=== PATIENT | female | born 1960 | race African-American/Black ===

== ENCOUNTER 2019-03-12 12:37 | Emergency (ER) | payer BC, OTHER ==
[2019-03-12 12:41] VITALS: BP 120/62; PULSE 73; TEMP 97.8; BMI 35.2
[2019-03-12] MEDS ORDERED: ACETAMINOPHEN 325 MG TABLET (FP) PO ONE (13:01)
--- NOTE | 2019-03-12 13:05 | PDOC ---
History of Present Illness - General Chief Complaint: Injury Stated Complaint: FALL Time Seen by Provider: 03/12/19 13:00 History Source: Patient Exam Limitations: No Limitations - History of Present Illness Initial Comments: 03/12/19 13:01 Patient stumbled over a box at a store falling sideways striking the lateral aspect of her head on a metal display rack. Occurred: reports: just prior to arrival Pain Location: reports: face, head Method of Injury: Yes: direct blow Modifying Factors: improves with: cold therapy Loss of Consciousness: no loss of consciousness Associated Symptoms (Fall): denies symptoms Past History - Travel Traveled outside of the country in the last 30 days: No Close contact w/someone who was outside of country & ill: No - Past Medical History Allergies/Adverse Reactions: Allergies Allergy/AdvReac Type Severity Reaction Status Date / Time lisinopril Allergy Verified 03/12/19 12:41 COPD: No Diabetes: Yes HTN: Yes Hypercholesterolemia: Yes - Psycho Social/Smoking Cessation Hx Smoking History: Never smoked Review of Systems - Review of Systems Able to Perform ROS?: Yes Is the patient limited Faroese proficient: Yes Constitutional: Yes: Symptoms Reported, See HPI, Malaise. No: Fever HEENTM: Yes: Symptoms Reported, See HPI, Other (Contusion to right lateral outer brow) Respiratory: No: Symptoms reported Integumentary: Yes: Symptoms Reported, See HPI, Bruising Neurological: Yes: See HPI. No: Symptoms reported, Headache All Other Systems: Reviewed and Negative *Physical Exam - Vital Signs Last Vital Signs Temp Pulse Resp BP Pulse Ox 97.8 F 73 18 120/62 99 03/12/19 12:39 03/12/19 12:39 03/12/19 12:39 03/12/19 12:39 03/12/19 12:39 - Physical Exam General Appearance: Yes: Nourished, Appropriately Dressed, Apparent Distress, Mild Distress HEENT: positive: EOMI, TARUN, Normal ENT Inspection, TMs Normal (No hemotympanum , no drainage from nose or ears, no evidence of skull fracture). negative: Rhinorrhea Neck: positive: Supple. negative: Tender Respiratory/Chest: positive: Lungs Clear Gastrointestinal/Abdominal: positive: Soft. negative: Tender Musculoskeletal: positive: Normal Inspection Extremity: positive: Normal Capillary Refill, Normal Inspection Integumentary: positive: Normal Color, Bruising (Contusion/soft tissue swelling noted to the right lateral brow area approximately 2 cm x 3 cm. No fluctuance, no step-offs or crepitus. Has full range of motion at TMJ without pain. No periorbital tenderness or crepitus. 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 Will treat conservatively with cool packs and Tylenol. Discharge - Discharge Information Problems reviewed: Yes Clinical Impression/Diagnosis: Contusion Qualifiers: Encounter type: initial encounter Contusion area: head Contusion of head detail : unspecified part of head Qualified Code(s): S00.93XA - Contusion of unspecified part of head, initial encounter Condition: Stable Disposition: HOME - Admission No - Follow up/Referral - Patient Discharge Instructions Patient Printed Discharge Instructions: DI for Closed Head Injury Additional Instructions: Rest, avoid strenuous activity or exercise for the next 24-48 hours May use ice on contusions as needed. May use Tylenol or Motrin for pain relief Watch and seek evaluation for changes in behavior including crankiness, inconsolability, quietness/ sleepiness that is inappropriate, tiredness that is inappropriate, watch for worsening and changes of behavior. Seek immediate evaluation/return to emergency department for vomiting, mental status changes, pain that's out of proportion , bloody drainage from ears or nose. Followup with private physician as needed in one to 2 days for reevaluation - Post Discharge Activity Work/Back to School Note: Back to Work
== END 2019-03-12 13:09 | disposition home or self-care (01) ==
LOC: JERFT 12:37
DX: S00.11XA Contusion of right eyelid and periocular area, initial encounter (principal); W01.198A Fall on same level from slipping, tripping and stumbling with subsequent striking against other object, initial encounter; Y93.89 Activity, other specified; Y92.512 Supermarket, store or market as the place of occurrence of the external cause; Y99.8 Other external cause status; I10 Essential (primary) hypertension; E78.00 Pure hypercholesterolemia, unspecified; Z88.8 Allergy status to other drugs, medicaments and biological substances
CPT/HCPCS: 99281-25